=== PATIENT | male | born 1950 | race Caucasian/White ===

== ENCOUNTER 2019-01-31 16:16 | Inpatient (IN) | payer MEDICARE, OTHER ==
[~2019-01-31] VITALS: Ht 182.9 cm; Wt 99.4 kg
[~2019-01-31 16:16] MED LIST: HYDR-4383 PO; NAPR-1154 PO
[2019-01-31 16:59] LABS: BASOPHILS # (AUTO) 0.2 X10'3 (0-0.2); BASOPHILS % (AUTO) 1.4 % (0-1); EOSINOPHILS # (AUTO) 0.2 X10'3 (0-0.9); EOSINOPHILS % (AUTO) 1.4 % (0-6); HEMATOCRIT 47.3 % (42.0-52.0); HEMOGLOBIN 16.1 g/dl (14.0-17.9); LYMPHOCYTES # (AUTO) 1.6 X10'3 (1.1-4.8); LYMPHOCYTES % (AUTO) 14.1 % (21-51); MEAN CORPUSCULAR HEMOGLOBIN 29.6 PG (27.0-31.0); MEAN CORPUSCULAR HGB CONC 34.1 g/dL (33.0-36.5); MEAN CORPUSCULAR VOLUME 86.9 FL (78-98); MEAN PLATELET VOLUME 8.8 FL (7.4-10.4); MONOCYTES # (AUTO) 0.7 X10'3 (0-0.9); MONOCYTES % (AUTO) 6.1 % (2-12); NEUTROPHILS # (AUTO) 8.9 X10'3 (1.8-7.7); PLATELET COUNT 257 X10'3 (140-440); RED BLOOD COUNT 5.44 X10'6 (4.70-6.10); RED CELL DISTRIBUTION WIDTH 13.9 % (11.5-14.5); WHITE BLOOD COUNT 11.5 X10'3 (4.5-11.0)
[2019-01-31] MEDS ORDERED: nitroGLYCERIN 0.4mg/hour patch TD ONE (17:00)
[2019-01-31 17:10] LABS: ALANINE AMINOTRANSFERASE 72 U/L (12-78); ALBUMIN 3.8 G/DL (3.4-5.0); ALBUMIN/GLOBULIN RATIO 1.2 (1.1-1.5); ALKALINE PHOSPHATASE 116 IU/L (46-116); ANION GAP 9 (8-16); ASPARTATE AMINO TRANSFERASE 29 U/L (10-37); BILIRUBIN,TOTAL 0.2 MG/DL (0.1-1.0); BLOOD UREA NITROGEN 20 MG/DL (7-18); BUN/CREATININE RATIO 17.9 (5.4-32.0); CHLORIDE 102 MMOL/L (99-107); CREATININE 1.12 MG/DL (0.60-1.10); GLUCOSE 322 MG/DL (70-104); POTASSIUM 3.9 MMOL/L (3.5-5.1); SODIUM 136 MMOL/L (135-145); TOTAL CARBON DIOXIDE 25.5 MMOL/L (24-32); eGFR 66 ML/MIN
--- NOTE | 2019-01-31 17:15 | NUR ---
RELIEVING RN FOR BREAK, PT IS RESTING QUIETLY ON GURNEY, RESP EVEN AND UNLABORED, PT SMOKES 1 PPD, ASKING FOR NICOTINE PATCH, DR COOK AWARE AND GAVE VERBAL ORDER FOR NICOTINE PATCH 14MG X1 NOW
[2019-01-31] MEDS ORDERED: nicotine 14mg patch - 24hr TD ONE (17:20)
[2019-01-31 17:34] LABS: INR 0.9 INR; PARTIAL THROMBOPLASTIN TIME 26 SECONDS (22-32); PROTHROMBIN TIME 9.5 SECONDS (9.0-12.0)
--- NOTE | 2019-01-31 17:58 | NUR ---
TALKED TO DR URENA & SHE MAY NOT HAVE TIME FOR ANOTHER ADMIT TODAY SO WE WILL HAVE TO CONTACT THE NIGHT HOSPITALIST
[2019-01-31] MEDS ORDERED: ASPI-611 PO (18:09)
[2019-01-31] MEDS ORDERED: normal saline 1000ml 1,000 ML IV SCH (19:22)
[2019-01-31] MEDS ORDERED: magnesium hydroxide 30ml (MOM) UD suspension PO PRN (19:25)
[2019-01-31] MEDS ORDERED: magnesium 4gm in 100ml NS 100 ML IV PRN (19:25)
[2019-01-31] MEDS ORDERED: magnesium 2GM in 50ml NS 50 ML IV PRN (19:25)
[2019-01-31] MEDS ORDERED: acetaminophen 325mg tablet PO PRN (19:25)
[2019-01-31] MEDS ORDERED: potassium Cl 40MEQ/NS 500ml 500 ML IV PRN ×2 (19:25)
[2019-01-31] MEDS ORDERED: ondansetron/PF 4mg/2ml inj IV PRN (19:25)
[2019-01-31] MEDS ORDERED: mag hydrox/Alum hydrox/simeth 30ml oral suspension PO PRN (19:25)
[2019-01-31] MEDS ORDERED: potassium Cl 20 mEq SR tablet PO PRN ×2 (19:25)
--- NOTE | 2019-01-31 19:39 | NUR ---
PT FAIRLY ADAMANT ABOUT NOT STAYING IN HOSPITAL, WANTS TO SPEAK WITH HOSPITALIST.
--- NOTE | 2019-01-31 19:46 | NUR ---
DR HURT NOTIFIED OF PT'S DESIRE TO LEAVE.
[2019-01-31] MEDS: enoxaparin 100mg/ml syringe SQ SCH (20:00)
[2019-01-31] MEDS: nicotine 21mg patch - 24 hr TD SCH (20:50)
--- NOTE | 2019-01-31 23:31 | NUR ---
Received phone call from Dr. De Leon to stop drawing trops on the pt. Per Dr. De Leon "We know what's going on, so we don't need to keep drawing them." Will cancel future trop orders
[2019-02-01] VITALS (12 sets, daily range): BP systolic 118–172; BP diastolic 55–106
[2019-02-01] MEDS ORDERED: glucagon, human recombinant 1mg kit SUBCUT PRN
[2019-02-01] MEDS ORDERED: MESSAGE TO PHARMACY PO ONE
[2019-02-01] MEDS ORDERED: dextrose ORAL solution 15 GM/59 ML bottle PO PRN ×2
--- NOTE | 2019-02-01 00:07 | NUR ---
DR HURT CALLED BACK TO UNIT, STATES HE LEFT A MESSAGE FOR DR DAVILA REGARDING PT.
--- NOTE | 2019-02-01 00:29 | NUR ---
Patient in room . I have received report from Rosita and had the opportunity to ask questions and assume patient care.
--- NOTE | 2019-02-01 00:36 | NUR ---
DR DAVILA CALLED BACK PLAN AGGRESTAT PROTOCOL.
[2019-02-01] MEDS ORDERED: aspirin 325mg tablet, delayed-release (Ecotrin) PO PRN (00:40)
--- NOTE | 2019-02-01 04:00 | NUR ---
PAGER ID: [phone] MESSAGE: Lexx Vargas in [id number] admitted for NSTEMI who is scheduled for heart cath later this morning had Aggrastat ordered that was never started in ED or passed on in report. Would you still like me to start? Arlen Allred Addendum: 02/01/19 at 0515 by Arlen Wilson RN Dr. Chairez called and would still like this med started since Dr. De Leon ordered it. Med was started following protocol with 50ml bolus and rate of 18ml/hr.
--- NOTE | 2019-02-01 04:40 | NUR ---
Per television repairman pt is in 2nd degree type 1 HB
[2019-02-01] MEDS: tirofiban 5mg in NS 100mL 100 ML IV SCH ×5 (04:44→22:16)
[2019-02-01 06:35] LABS: BASOPHILS # (AUTO) 0.1 X10'3 (0-0.2); BASOPHILS % (AUTO) 0.9 % (0-1); EOSINOPHILS # (AUTO) 0.2 X10'3 (0-0.9); EOSINOPHILS % (AUTO) 2.1 % (0-6); HEMATOCRIT 43.9 % (42.0-52.0); HEMOGLOBIN 15.1 g/dl (14.0-17.9); LYMPHOCYTES # (AUTO) 1.9 X10'3 (1.1-4.8); LYMPHOCYTES % (AUTO) 18.1 % (21-51); MEAN CORPUSCULAR HEMOGLOBIN 29.9 PG (27.0-31.0); MEAN CORPUSCULAR HGB CONC 34.3 g/dL (33.0-36.5); MEAN CORPUSCULAR VOLUME 87.4 FL (78-98); MONOCYTES # (AUTO) 0.7 X10'3 (0-0.9); MONOCYTES % (AUTO) 7.2 % (2-12); NEUTROPHILS # (AUTO) 7.4 X10'3 (1.8-7.7); NEUTROPHILS % (AUTO) 71.7 % (42-75); PLATELET COUNT 243 X10'3 (140-440); RED BLOOD COUNT 5.03 X10'6 (4.70-6.10); RED CELL DISTRIBUTION WIDTH 13.6 % (11.5-14.5); WHITE BLOOD COUNT 10.3 X10'3 (4.5-11.0)
[2019-02-01 06:42] LABS: ALANINE AMINOTRANSFERASE 64 U/L (12-78); ALBUMIN 3.2 G/DL (3.4-5.0); ALBUMIN/GLOBULIN RATIO 1.1 (1.1-1.5); ALKALINE PHOSPHATASE 97 IU/L (46-116); ANION GAP 11 (8-16); ASPARTATE AMINO TRANSFERASE 67 U/L (10-37); BILIRUBIN,TOTAL 0.4 MG/DL (0.1-1.0); BLOOD UREA NITROGEN 16 MG/DL (7-18); BUN/CREATININE RATIO 16.5 (5.4-32.0); CALCIUM 8.7 MG/DL (8.5-10.1); CHLORIDE 105 MMOL/L (99-107); CREATININE 0.97 MG/DL (0.60-1.10); GLUCOSE 241 MG/DL (70-104); MAGNESIUM 1.7 MG/DL (1.5-2.4); POTASSIUM 3.7 MMOL/L (3.5-5.1); SODIUM 139 MMOL/L (135-145); TOTAL PROTEIN 6.2 G/DL (6.4-8.2); eGFR 77 ML/MIN
--- NOTE | 2019-02-01 06:43 | NUR ---
Problems reprioritized. Patient report given, questions answered & plan of care reviewed with Marine STEWART. NEW GRAD documentation: I have reviewed and agree with all interventions, assessments performed and documented by JESSIKA STEWART. NEW GRAD Medication Administration: For this medication-pass time frame, all medication were reviewed, dispensed, administered and documented per hospital policy by JESSIKA STEWART.
--- NOTE | 2019-02-01 06:48 | NUR ---
Patient in room PCU 3016. I have received report from Livia RN and had the opportunity to ask questions and assume patient care.
[2019-02-01 07:15] LABS: HEMOGLOBIN A1C 9.9 % (4.5-6.2)
[2019-02-01] MEDS: enoxaparin 100mg/ml syringe SQ SCH (08:00)
[2019-02-01] MEDS: K and/or MAG REPLACEMENT MC SCH (08:00)
[2019-02-01] MEDS: aspirin 81mg tab.chew PO SCH (08:18)
[2019-02-01] MEDS: nicotine 21mg patch - 24 hr TD SCH (08:19)
[2019-02-01] MEDS: insulin Lispro (HumaLOG) vial - multi-dose SQ SCH ×3 (08:22→21:11)
--- NOTE | 2019-02-01 11:43 | NUR ---
PAGER ID: [phone] MESSAGE: Donald [id number]. BP 152/97 rechecked and was 170/95. please adviseMarine [phone]
[2019-02-01] MEDS ORDERED: metoprolol tartrate 25mg tablet PO ONE ×2 (11:50→16:05)
[2019-02-01] MEDS ORDERED: midazolam 2 mg/2 ml injection ONE ×3 (14:00→14:47)
[2019-02-01] MEDS ORDERED: LIDOcaine 1% (10mg/ml)w/preservative injection 20ml MDV ONE (14:01)
[2019-02-01] MEDS ORDERED: fentaNYL/PF 50MCG/1 ML 2ML syringe ONE (14:01)
[2019-02-01] MEDS ORDERED: iohexol 350 MG/ML 50ML vial IV ONE (14:01)
[2019-02-01] MEDS ORDERED: iohexol 350MG/ML 100ml bottle IV ONE (14:01)
[2019-02-01] MEDS ORDERED: magnesium hydroxide 30ml (MOM) UD suspension PO PRN (15:35)
[2019-02-01] MEDS ORDERED: proCHLORperazine 10 MG/2 ml inj IV PRN (15:35)
[2019-02-01] MEDS ORDERED: acetaminophen 325mg tablet PO PRN (15:35)
[2019-02-01] MEDS ORDERED: HYDROcodone/acetaminophen 10/325mg tab PO PRN (15:35)
[2019-02-01] MEDS ORDERED: morphine 10mg/ml inj. IV PRN (15:35)
[2019-02-01] MEDS: normal saline 1000ml 1,000 ML IV SCH ×2 (15:35→22:17)
[2019-02-01] MEDS ORDERED: morphine 4 MG/ML inj SYRINge IV PRN (15:35)
[2019-02-01] MEDS ORDERED: heparin 10,000 units/1 ML INJ IV PRN (15:45)
--- NOTE | 2019-02-01 15:46 | NUR ---
Called report to Mellisa STEWART in the ICU
[2019-02-01] MEDS ORDERED: heparin 10,000 units/1 ML INJ IV ONE (16:00)
--- NOTE | 2019-02-01 16:00 | NUR ---
pt received by nolberto to room 2039. sbp by art line- 190's, by cuff 170's. dr barnhart notified- will give lopressor early along with a flexeril. in the mean time pt found oob over rail with sheath. back to bed. repeated instruction both b4 and after incident the precautionds and dangers of moving, bending, standing. pt with many repeated questions- answered many times.
[2019-02-01] MEDS: cyclobenzaprine 10mg tablet PO PRN (16:20)
[2019-02-01] MEDS: insulin regular, human 100 UNIT in normal saline 100ml IV soln 100 ML IV SCH ×2 (16:32)
[2019-02-01] MEDS ORDERED: insulin glargine (Lantus) pen - multi-dose SQ PRN (16:35)
[2019-02-01] MEDS ORDERED: dextrose 50%-water 50ml dispensing syringe IV PRN ×3 (16:35)
[2019-02-01] MEDS ORDERED: MESSAGE TO NURSING PO ONE ×4 (16:35)
[2019-02-01] MEDS ORDERED: amLODIPine 5mg tablet PO SCH (16:40)
[2019-02-01] MEDS: amLODIPine 5mg tablet PO SCH (16:56)
[2019-02-01] MEDS: heparin 25,000 UNIT/250ml bag 250 ML IV SCH ×2 (17:00→23:48)
[2019-02-01] MEDS ORDERED: vancomycin/NS 1 GM ADD-VANTAGE 250 ML IV SCH (17:00)
--- NOTE | 2019-02-01 17:00 | NUR ---
dr barnhart here- aware of pt standing- area soft- small drainage at cath site. pulses palpable paola. lungs clear, pos bowel sounds. dr lua here x 2, dr barnhart ordered norvasc and given. heparin gtt started.
--- NOTE | 2019-02-01 18:00 | NUR ---
sbp down to 130's. tray x 2, voided x 1
--- NOTE | 2019-02-01 18:30 | NUR ---
Patient in room ICU 2039. I have received report from Mellisa STEWART and had the opportunity to ask questions and assume patient care.
--- NOTE | 2019-02-01 19:30 | NUR ---
Patient non-compliant with keeping leg straight. Patient continues to bend leg and attempting to sit up in bed. Patient educated on affects of bending leg. Will continue to educate patient.
[2019-02-01] MEDS: docusate sod 100mg capsule PO SCH (20:00)
[2019-02-01] MEDS ORDERED: metoprolol tartrate 12.5mg (1/2 tablet) PO SCH (20:00)
[2019-02-01] MEDS ORDERED: metoprolol tartrate 25mg tablet PO SCH (20:00)
[2019-02-01] MEDS: OXAZEpam 15mg capsule PO PRN (21:07)
[2019-02-01] MEDS: mupirocin 2% nasal ointment 1gm UD NS SCH (21:08)
[2019-02-01] MEDS: insulin glargine (Lantus) pen - multi-dose SQ SCH (21:12)
--- NOTE | 2019-02-01 22:35 | NUR ---
Patient had three episodes where he went into 3rd degree block and padilla down into the 30's. Blood pressure stable at this time. Left message with Dr De Leon's answering service. Waiting for call back.
--- NOTE | 2019-02-01 23:16 | NUR ---
Patient had three beat run of Vtach. Awaiting return call from Dr Russ. Cunningham at bedside. Will continue to monitor closely.
[2019-02-02] VITALS (23 sets, daily range): BP systolic 113–154; BP diastolic 69–92
--- NOTE | 2019-02-02 01:15 | NUR ---
Dr De Leon called back. New orders received to D/C lopressor. Will continue to monitor.
[2019-02-02] MEDS: tirofiban 5mg in NS 100mL 100 ML IV SCH ×4 (04:07→22:08)
--- NOTE | 2019-02-02 06:30 | NUR ---
Patient in room ICU 2039. I have received report from SHRAVAN and had the opportunity to ask questions and assume patient care.
[2019-02-02 06:41] LABS: BASOPHILS # (AUTO) 0.1 X10'3 (0-0.2); BASOPHILS % (AUTO) 0.7 % (0-1); EOSINOPHILS # (AUTO) 0.2 X10'3 (0-0.9); EOSINOPHILS % (AUTO) 2.2 % (0-6); HEMATOCRIT 44.4 % (42.0-52.0); HEMOGLOBIN 15.2 g/dl (14.0-17.9); LYMPHOCYTES # (AUTO) 1.8 X10'3 (1.1-4.8); LYMPHOCYTES % (AUTO) 17.6 % (21-51); MEAN CORPUSCULAR HEMOGLOBIN 30.1 PG (27.0-31.0); MEAN CORPUSCULAR HGB CONC 34.2 g/dL (33.0-36.5); MEAN CORPUSCULAR VOLUME 87.9 FL (78-98); MONOCYTES # (AUTO) 0.7 X10'3 (0-0.9); MONOCYTES % (AUTO) 6.9 % (2-12); NEUTROPHILS # (AUTO) 7.5 X10'3 (1.8-7.7); NEUTROPHILS % (AUTO) 72.6 % (42-75); PLATELET COUNT 235 X10'3 (140-440); RED BLOOD COUNT 5.04 X10'6 (4.70-6.10); RED CELL DISTRIBUTION WIDTH 13.9 % (11.5-14.5); WHITE BLOOD COUNT 10.3 X10'3 (4.5-11.0)
[2019-02-02 07:03] LABS: ALANINE AMINOTRANSFERASE 62 U/L (12-78); ALBUMIN 3.2 G/DL (3.4-5.0); ALKALINE PHOSPHATASE 100 IU/L (46-116); ANION GAP 11 (8-16); ASPARTATE AMINO TRANSFERASE 62 U/L (10-37); BILIRUBIN,TOTAL 0.4 MG/DL (0.1-1.0); BLOOD UREA NITROGEN 12 MG/DL (7-18); BUN/CREATININE RATIO 13.3 (5.4-32.0); CALCIUM 8.8 MG/DL (8.5-10.1); CHLORIDE 107 MMOL/L (99-107); CHOLESTEROL 190 MG/DL (0-200); GLUCOSE 191 MG/DL (70-104); HDL CHOLESTEROL 27 MG/DL (35-60); LDL CHOLESTEROL 142 MG/DL (50-100); MAGNESIUM 1.8 MG/DL (1.5-2.4); PHOSPHORUS 2.9 MG/DL (2.3-4.5); POTASSIUM 3.7 MMOL/L (3.5-5.1); SODIUM 139 MMOL/L (135-145); TOTAL CARBON DIOXIDE 21.1 MMOL/L (24-32); TOTAL PROTEIN 6.3 G/DL (6.4-8.2); TRIGLYCERIDES 111 MG/DL (20-135); eGFR 84 ML/MIN
[2019-02-02 07:09] LABS: PROTHROMBIN TIME 9.9 SECONDS (9.0-12.0)
[2019-02-02] MEDS: K and/or MAG REPLACEMENT MC SCH (08:00)
[2019-02-02] MEDS: docusate sod 100mg capsule PO SCH ×2 (08:00→20:00)
[2019-02-02] MEDS: mupirocin 2% nasal ointment 1gm UD NS SCH ×2 (08:00→20:14)
[2019-02-02] MEDS: amLODIPine 5mg tablet PO SCH ×2 (08:09→20:06)
[2019-02-02] MEDS: aspirin 81mg tab.chew PO SCH (08:09)
[2019-02-02] MEDS: atorvastatin 20mg tablet PO SCH (08:09)
[2019-02-02] MEDS: nicotine 21mg patch - 24 hr TD SCH (08:10)
[2019-02-02] MEDS: cyclobenzaprine 10mg tablet PO PRN ×2 (08:10→20:06)
[2019-02-02 09:06] LABS: TROPONIN I 8.25 NG/ML (0.0-0.05)
[2019-02-02] MEDS: insulin Lispro (HumaLOG) vial - multi-dose SQ SCH ×2 (09:12→19:36)
[2019-02-02] MEDS ORDERED: MESSAGE TO NURSING PO ONE ×4 (10:00→13:20)
--- NOTE | 2019-02-02 10:45 | NUR ---
episode of 2nd degree type 2 block when pt was sleeping. otherwise 1st degree sbp stable at 130" appetite good. continued . blood sugar down to 174. pages to vascular, here and doing procredure
--- NOTE | 2019-02-02 12:47 | NUR ---
DM consult: Pt admit w/ NSTEMI s/p cardiac cath hx smoking past 40 years now quitting on nicotine patch per MD note. Pt is newly DX T2DM w/ A1C 9.9 and no prior hx. Pt seen by RD for written/verbal DM ed w/ RD contact information provided. RD encouraged attending CDE course. Pt was very attentive even though he could not read handout at this time since w/o reading glasses. Pt mainly focused on reviewing portion sizing and optimal meal building/frequency. RD educated pt on healthy cooking options to reduce saturated fats and increase fiber intake as well given LDL [address] also reviewed signs/symptoms of low/high GLU w/ proper diet strategies; including how to maintain optimal GLU during exercise. Pt states just bought treadmill and uses it 2hr/week in addition to cutting down his portion sizes to lose wt. RD reviewed carb portions and nutrition facts labeling as well as sick day guidelines. Pt PO 75% avg meals meeting needs. RD d/w RN and dietary to add carb controlled diet given new DX. Per RN pt to have CABG in AM tomorrow; will need high protein reinforcement following. LBM [address] encouraged pt to contact if any further concerns. Will continue to monitor. Rec: 1. advance to carb controlled/heart healthy diet 2. monitor for ONS once s/p CABG 3. high protein ed once stable s/p CABG 4. bowel regularity 5. wt per rx Addendum: 02/02/19 at [address] Amended: Links added.
[2019-02-02] MEDS ORDERED: insulin regular, human 100 UNIT in normal saline 100ml IV soln 100 ML IV SCH ×2 (13:18)
[2019-02-02] MEDS ORDERED: insulin glargine (Lantus) pen - multi-dose SQ PRN (13:20)
[2019-02-02] MEDS ORDERED: NUT.TX.IMPAIRED DIGEST FXN (Ensure Clear) 237 ML PO ONE (13:20)
[2019-02-02] MEDS ORDERED: dextrose 50%-water 50ml dispensing syringe IV PRN (13:20)
--- NOTE | 2019-02-02 13:38 | NUR ---
Ensure clear ordered per MD; RD and dietary aware. Okay given pt will need increased protein needs tomorrow following CABG. Addendum: 02/02/19 at [address] Amended: Links added.
[2019-02-02] MEDS ORDERED: ringers solution, lacted 1,000 ML IV ONE (14:49)
[2019-02-02 15:34] LABS: CLARITY,URINE CLEAR (Clear); COLOR,URINE STRAW (Yellow); GLUCOSE, URINE 100 mg/dl (Neg); KETONES,URINE NEGATIVE (Neg); LEUKOCYTE ESTERASE ,URINE NEGATIVE (Neg); NITRITES, URINE NEGATIVE (Neg); OCCULT BLOOD,URINE NEGATIVE (Neg); PROTEIN,URINE NEGATIVE (Neg); UROBILINOGEN,URINE 0.2 E.U/dL (0.2-1.0)
[2019-02-02 15:37] LABS: UA COLLECTION TYPE VOIDED
[2019-02-02] MEDS: HYDROcodone/acetaminophen 10/325mg tab PO PRN ×2 (15:46→20:07)
[2019-02-02 16:46] LABS: ABG BASE EXCESS -0.3 mmol/L (-2.0-3.0); ABG HCO3 23.2 mmol/L (22.0-26.0); ABG OXYGEN SATURATION 90.5 % (95-98); ABG PCO2 (T) 34.9 mmHg (35.0-48.0); ABG PO2 (T) 54.9 mmHg (83-108); ALLEN'S TEST Positive; FCOHb 0.4 % (0.5-1.5); FMetHb 0.2 % (0.3-1.12); TOTAL HEMOGLOBIN 15.3 G/dl (14.0-18.0)
[2019-02-02 17:38] LABS: BASOPHILS # (AUTO) 0.1 X10'3 (0-0.2); EOSINOPHILS # (AUTO) 0.3 X10'3 (0-0.9)
[2019-02-02 17:40] LABS: BASOPHILS % (AUTO) 1.3 % (0-1); EOSINOPHILS % (AUTO) 2.4 % (0-6); HEMATOCRIT 43.7 % (42.0-52.0); HEMOGLOBIN 14.8 g/dl (14.0-17.9); LYMPHOCYTES # (AUTO) 2.6 X10'3 (1.1-4.8); LYMPHOCYTES % (AUTO) 24.6 % (21-51); MEAN CORPUSCULAR HEMOGLOBIN 29.8 PG (27.0-31.0); MEAN CORPUSCULAR HGB CONC 33.9 g/dL (33.0-36.5); MEAN CORPUSCULAR VOLUME 87.9 FL (78-98); MEAN PLATELET VOLUME 8.9 FL (7.4-10.4); MONOCYTES # (AUTO) 0.8 X10'3 (0-0.9); MONOCYTES % (AUTO) 7.4 % (2-12); NEUTROPHILS # (AUTO) 6.7 X10'3 (1.8-7.7); NEUTROPHILS % (AUTO) 64.3 % (42-75); PLATELET COUNT 220 X10'3 (140-440); RED BLOOD COUNT 4.98 X10'6 (4.70-6.10); RED CELL DISTRIBUTION WIDTH 13.7 % (11.5-14.5); WHITE BLOOD COUNT 10.4 X10'3 (4.5-11.0)
[2019-02-02 17:48] LABS: ANION GAP 12 (8-16); BLOOD UREA NITROGEN 12 MG/DL (7-18); BUN/CREATININE RATIO 13.5 (5.4-32.0); CALCIUM 8.7 MG/DL (8.5-10.1); CHLORIDE 107 MMOL/L (99-107); CREATININE 0.89 MG/DL (0.60-1.10); GLUCOSE 145 MG/DL (70-104); POTASSIUM 3.4 MMOL/L (3.5-5.1); SODIUM 140 MMOL/L (135-145); TOTAL CARBON DIOXIDE 21.4 MMOL/L (24-32); eGFR 86 ML/MIN
--- NOTE | 2019-02-02 17:54 | NUR ---
consents signed for or and blood. shekhar davison and yovani in. education given re cabg- materials given re pre- post and sternal prec. pt 'nervous' labs drawn, vacular and pft done. sheath still doent drawn- waveform similar to cuff pressures.
[2019-02-02] MEDS: normal saline 1000ml 1,000 ML IV SCH (18:15)
--- NOTE | 2019-02-02 18:30 | NUR ---
Patient in room ICU 2039. I have received report from Mellisa STEWART and had the opportunity to ask questions and assume patient care.
[2019-02-02 18:53] LABS: TROPONIN I 5.55 NG/ML (0.0-0.05)
[2019-02-02] MEDS: insulin glargine (Lantus) pen - multi-dose SQ SCH (21:00)
[2019-02-03] VITALS (23 sets, daily range): BP systolic 107–152; BP diastolic 56–99
[2019-02-03] MEDS: heparin 25,000 UNIT/250ml bag 250 ML IV SCH (01:14)
[2019-02-03] MEDS: insulin regular, human 100 UNIT in normal saline 100ml IV soln 100 ML IV SCH ×2 (01:52)
[2019-02-03] MEDS: tirofiban 5mg in NS 100mL 100 ML IV SCH (03:49)
[2019-02-03] MEDS ORDERED: gabapentin 400mg capsule PO ONE (05:30)
[2019-02-03] MEDS ORDERED: vancomycin/NS 1 GM ADD-VANTAGE 250 ML IV ONE (05:30)
[2019-02-03] MEDS ORDERED: cefazolin/dext.iso 2gm/50ml 50 ML IV ONE (05:30)
[2019-02-03 05:42] LABS: BASOPHILS # (AUTO) 0.1 X10'3 (0-0.2); EOSINOPHILS # (AUTO) 0.3 X10'3 (0-0.9); LYMPHOCYTES # (AUTO) 2.2 X10'3 (1.1-4.8); MEAN CORPUSCULAR VOLUME 88.2 FL (78-98); MONOCYTES # (AUTO) 0.8 X10'3 (0-0.9); MONOCYTES % (AUTO) 7.2 % (2-12)
[2019-02-03 05:44] LABS: BASOPHILS % (AUTO) 1.1 % (0-1); EOSINOPHILS % (AUTO) 2.7 % (0-6); HEMATOCRIT 46.8 % (42.0-52.0); LYMPHOCYTES % (AUTO) 20.6 % (21-51); MEAN CORPUSCULAR HEMOGLOBIN 30.2 PG (27.0-31.0); MEAN CORPUSCULAR HGB CONC 34.3 g/dL (33.0-36.5); MEAN PLATELET VOLUME 8.6 FL (7.4-10.4); NEUTROPHILS # (AUTO) 7.2 X10'3 (1.8-7.7); NEUTROPHILS % (AUTO) 68.4 % (42-75); PLATELET COUNT 239 X10'3 (140-440); RED CELL DISTRIBUTION WIDTH 14.3 % (11.5-14.5); WHITE BLOOD COUNT 10.6 X10'3 (4.5-11.0)
[2019-02-03] MEDS ORDERED: LORazepam 2 mg/ml vial IV ONE (06:00)
[2019-02-03] MEDS ORDERED: NUT.TX.IMPAIRED DIGEST FXN (Ensure Clear) 237 ML PO ONE (06:00)
[2019-02-03] MEDS ORDERED: famotidine 20mg tablet PO ONE (06:00)
[2019-02-03 06:10] LABS: ALANINE AMINOTRANSFERASE 62 U/L (12-78); ALBUMIN 3.2 G/DL (3.4-5.0); ALBUMIN/GLOBULIN RATIO 0.9 (1.1-1.5); ALKALINE PHOSPHATASE 104 IU/L (46-116); ANION GAP 11 (8-16); ASPARTATE AMINO TRANSFERASE 42 U/L (10-37); BILIRUBIN,TOTAL 0.3 MG/DL (0.1-1.0); BLOOD UREA NITROGEN 12 MG/DL (7-18); CALCIUM 8.6 MG/DL (8.5-10.1); CHLORIDE 104 MMOL/L (99-107); GLUCOSE 180 MG/DL (70-104); MAGNESIUM 1.7 MG/DL (1.5-2.4); POTASSIUM 4.1 MMOL/L (3.5-5.1); SODIUM 138 MMOL/L (135-145); TOTAL CARBON DIOXIDE 23.2 MMOL/L (24-32); TOTAL PROTEIN 6.6 G/DL (6.4-8.2); eGFR 75 ML/MIN
--- NOTE | 2019-02-03 06:30 | NUR ---
Patient in room ICU 2039. I have received report from PAT Delgado and had the opportunity to ask questions and assume patient care.
[2019-02-03] MEDS ORDERED: aminocaproic acid 250 MG/1 ML inj. ONE ×2 (07:17→09:00)
[2019-02-03] MEDS ORDERED: nitroGLYCERIN in D5W 50mg/250ml (Tridil) infusion IV ONE (07:17)
[2019-02-03] MEDS ORDERED: INSULIN R 100 UNIT in NS 100ML (1 UNIT/1 ML) BAG IV ONE (07:17)
[2019-02-03] MEDS ORDERED: rocuronium 10mg/ml inj IV ONE ×2 (07:17→07:25)
[2019-02-03] MEDS ORDERED: isoflurane 100ml inhalation liquid IH ONE (07:17)
[2019-02-03] MEDS ORDERED: protamine sulf. 10mg/ml inj. IV ONE (07:17)
--- NOTE | 2019-02-03 07:20 | NUR ---
Pt off unit to CVOR.
[2019-02-03] MEDS ORDERED: SUFENTANIL CITRATE 50 MCG/ML 2ml ampule IV ONE (07:23)
[2019-02-03] MEDS ORDERED: propofol inj 20 ML IV ONE (07:24)
[2019-02-03] MEDS ORDERED: LIDOcaine 2% (20mg/ml) 5ml vial ONE (07:24)
[2019-02-03] MEDS ORDERED: pancuronium br 1mg/ml inj IV ONE (07:25)
[2019-02-03] MEDS ORDERED: LORazepam 2 mg/ml vial ONE (07:27)
[2019-02-03] MEDS: normal saline 1000ml 1,000 ML IV SCH ×2 (07:35→19:41)
[2019-02-03 07:58] LABS: TOTAL CELLS COUNTED 100
[2019-02-03 07:59] LABS: PLATELET ESTIMATE NORMAL
[2019-02-03] MEDS: docusate sod 100mg capsule PO SCH ×2 (08:00→19:40)
[2019-02-03] MEDS: mupirocin 2% nasal ointment 1gm UD NS SCH ×2 (08:00→19:41)
[2019-02-03] MEDS: amLODIPine 5mg tablet PO SCH (08:00)
[2019-02-03] MEDS: K and/or MAG REPLACEMENT MC SCH (08:00)
[2019-02-03] MEDS: atorvastatin 20mg tablet PO SCH (08:00)
[2019-02-03] MEDS ORDERED: ROPIVAcaine 0.5% (5mg/ml) 30ml vial ONE (08:12)
[2019-02-03] MEDS ORDERED: ceFAZolin 1000mg inj ONE (08:12)
[2019-02-03] MEDS ORDERED: LIDOcaine 1% 30ml preserv. free vial ONE (08:13)
[2019-02-03] MEDS ORDERED: heparin 10,000 units/1 ML INJ ONE ×2 (08:13→09:00)
[2019-02-03 08:21] LABS: ABG OXYGEN SATURATION 99.2 % (95-98); ABG PH 7.316 (7.350-7.450); ABG PO2 202.2 mmHg (60.0-100.0); CL (ABG) 104 mmol/L (99-107); FCOHb 0.9 % (0.5-1.5); FMetHb 0.3 % (0.3-1.12); GLUCOSE (ABG) 291 mg/dl (70-105); IONIZED CA (ABG) 1.18 mmol/L (1.03-1.32); K (ABG) 3.8 mmol/L (3.3-5.1); NA (ABG) 127 mmol/L (135-145); TOTAL HEMOGLOBIN 14.4 G/dl (14.0-18.0)
[2019-02-03] MEDS: aspirin 81mg tab.chew PO SCH (08:30)
[2019-02-03] MEDS ORDERED: esmolol inj. 10 ML IV ONE (08:49)
[2019-02-03] MEDS ORDERED: metoprolol tartrate 1mg/ml inj IV ONE (08:49)
[2019-02-03] MEDS ORDERED: papaverine 30 mg/ml 2ml inj. IA ONE (08:50)
[2019-02-03] MEDS ORDERED: heparin 10,000 units/1 ML INJ IR ONE (08:50)
[2019-02-03] MEDS ORDERED: ipratropium/albuterol 3ml nebule IH PRN (08:55)
[2019-02-03] MEDS ORDERED: phenylephrine 10mg/ml inj. ONE (09:00)
[2019-02-03] MEDS ORDERED: albumin (human) 25% 100 ML IV solution IV ONE (09:00)
[2019-02-03] MEDS ORDERED: sodium bicarbonate (8.4%) inj. 1 MEQ/ML ML ONE (09:00)
[2019-02-03] MEDS ORDERED: LIDOcaine 2% (20 mg/ml) 5ml cardiac syringe ONE (09:00)
[2019-02-03] MEDS ORDERED: papaverine 30 mg/ml 2ml inj. ONE (09:00)
[2019-02-03] MEDS ORDERED: calcium chloride 100 MG/1 ML inj IV ONE (09:00)
[2019-02-03 09:06] LABS: ABG BASE EXCESS VENOUS -5.3 mmol/L; ABG HCO3 VENOUS 21.9 mmol/L; ABG PCO2 VENOUS 49.3 mmHg; ABG PO2 VENOUS 103.5 mmHg; CL (ABG) 105 mmol/L (99-107); FCOHb VENOUS 0.8 %; FHHb VENOUS 2.6 %; FMetHb VENOUS 0.5 %; FO2Hb VENOUS 96.1 %; GLUCOSE (ABG) 214 mg/dl (70-105); IONIZED CA (ABG) 1.17 mmol/L (1.03-1.32); K (ABG) 3.7 mmol/L (3.3-5.1); NA (ABG) 127 mmol/L (135-145); TOTAL HEMOGLOBIN 13.6 G/dl (14.0-18.0)
[2019-02-03 09:30] LABS: ABG BASE EXCESS -4.2 mmol/L (-2.0-3.0); ABG OXYGEN SATURATION 98.9 % (95-98); ABG PCO2 45.1 mmHg (35.0-45.0); ABG PH 7.306 (7.350-7.450); ABG PO2 297.6 mmHg (60.0-100.0); CL (ABG) 101 mmol/L (99-107); FCOHb 0.3 % (0.5-1.5); FMetHb 0.6 % (0.3-1.12); GLUCOSE (ABG) 158 mg/dl (70-105); K (ABG) 3.4 mmol/L (3.3-5.1); NA (ABG) 128 mmol/L (135-145); TOTAL HEMOGLOBIN 9.9 G/dl (14.0-18.0)
[2019-02-03 09:51] LABS: ABG BASE EXCESS -5.3 mmol/L (-2.0-3.0); ABG HCO3 20.3 mmol/L (22.0-26.0); ABG OXYGEN SATURATION 99.2 % (95-98); ABG PCO2 39.7 mmHg (35.0-45.0); ABG PH 7.326 (7.350-7.450); ABG PO2 318.3 mmHg (60.0-100.0); CL (ABG) 103 mmol/L (99-107); FCOHb 0.2 % (0.5-1.5); FMetHb 0.5 % (0.3-1.12); FO2Hb 98.5 % (94-100); GLUCOSE (ABG) 150 mg/dl (70-105); IONIZED CA (ABG) 1.07 mmol/L (1.03-1.32); K (ABG) 3.8 mmol/L (3.3-5.1); NA (ABG) 128 mmol/L (135-145); TOTAL HEMOGLOBIN 10.5 G/dl (14.0-18.0)
[2019-02-03] MEDS ORDERED: MESSAGE TO NURSING PO ONE (10:00)
[2019-02-03 10:30] LABS: ABG BASE EXCESS -1.8 mmol/L (-2.0-3.0); ABG HCO3 24.2 mmol/L (22.0-26.0); ABG OXYGEN SATURATION 99.1 % (95-98); ABG PCO2 46.8 mmHg (35.0-45.0); ABG PH 7.332 (7.350-7.450); ABG PO2 303.1 mmHg (60.0-100.0); CL (ABG) 105 mmol/L (99-107); FCOHb 0.2 % (0.5-1.5); FMetHb 0.4 % (0.3-1.12); FO2Hb 98.5 % (94-100); GLUCOSE (ABG) 138 mg/dl (70-105); IONIZED CA (ABG) 1.06 mmol/L (1.03-1.32); K (ABG) 3.8 mmol/L (3.3-5.1); NA (ABG) 129 mmol/L (135-145); TOTAL HEMOGLOBIN 10.6 G/dl (14.0-18.0)
[2019-02-03] MEDS ORDERED: albumin (Human) 5% 250ml 250 ML IV ONE (10:54)
[2019-02-03 11:11] LABS: ABG BASE EXCESS VENOUS -2.1 mmol/L; ABG HCO3 VENOUS 23.4 mmol/L; ABG PCO2 VENOUS 42.9 mmHg; ABG PO2 VENOUS 56.7 mmHg; CL (ABG) 108 mmol/L (99-107); FCOHb VENOUS 0.4 %; FHHb VENOUS 11.4 %; FMetHb VENOUS 0.6 %; FO2Hb VENOUS 87.6 %; GLUCOSE (ABG) 134 mg/dl (70-105); IONIZED CA (ABG) 1.14 mmol/L (1.03-1.32); K (ABG) 3.8 mmol/L (3.3-5.1); NA (ABG) 129 mmol/L (135-145)
[2019-02-03] MEDS ORDERED: niCARDipine-NS 40mg/200ml IVPB 200 ML IV PRN (11:23)
[2019-02-03] MEDS ORDERED: nitroGLYCERIN-Tridil 50MG/D5W 250 ML IV SCH (11:23)
[2019-02-03] MEDS ORDERED: nitroGLYCERIN-Tridil 50MG/D5W 250 ML IV PRN (11:23)
[2019-02-03] MEDS ORDERED: potassium Cl 20 mEq SR tablet PO PRN (11:25)
[2019-02-03] MEDS ORDERED: morphine 4 MG/ML inj SYRINge IV PRN ×2 (11:25)
[2019-02-03] MEDS ORDERED: insulin regular, human inj. 100 UNITS in normal saline 100ml IV soln 100 ML IV SCH ×2 (11:25)
[2019-02-03] MEDS ORDERED: magnesium 2GM in 50ml NS 50 ML IV PRN (11:25)
[2019-02-03] MEDS ORDERED: ondansetron/PF 4mg/2ml inj IV PRN (11:25)
[2019-02-03] MEDS ORDERED: dextrose 50%-water 50ml dispensing syringe IV PRN (11:25)
[2019-02-03] MEDS ORDERED: sodium phosphate inj. 30 MMOL in dextrose 5%-water 250 ML IV PRN (11:25)
[2019-02-03] MEDS ORDERED: acetaminophen 325mg tablet PO PRN (11:25)
[2019-02-03] MEDS ORDERED: sodium phosphate inj. 15 MMOL in dextrose 5%-water 150 ML IV PRN (11:25)
[2019-02-03] MEDS ORDERED: magnesium hydroxide 30ml (MOM) UD suspension PO PRN (11:25)
[2019-02-03] MEDS ORDERED: pantoprazole 40 MG vial IV ONE (11:25)
[2019-02-03] MEDS ORDERED: metoclopramide 5 mg/ml inj IV PRN (11:25)
[2019-02-03] MEDS ORDERED: Neutra Phos packet PO PRN (11:25)
[2019-02-03] MEDS ORDERED: magnesium 4gm in 100ml NS 100 ML IV PRN (11:25)
--- NOTE | 2019-02-03 12:00 | NUR ---
Received to room 2039, accompanied by Agustin Brown and surgical crew. Placed on ventilator, to electronic device monitor, arterial line and PA line pressure monitored. Chest tubes to suction at 20 cm. Montemayor cath to gravity drainage. Dressings are dry and intact. See assessment record. All vasoactive drugs are infusing via central line.
[2019-02-03 12:05] LABS: ABG BASE EXCESS -13.5 mmol/L (-2.0-3.0); ABG HCO3 11.1 mmol/L (22.0-26.0); ABG OXYGEN SATURATION 95.3 % (95-98); ABG PCO2 (T) 21.5 mmHg (35.0-48.0); ABG PH (T) 7.331 (7.350-7.450); ABG PO2 (T) 89.1 mmHg (83-108); FCOHb 0.2 % (0.5-1.5); FMetHb 0.6 % (0.3-1.12); FO2Hb 94.5 % (94-100); MINUTE VOLUME 10 L/min; PATIENT TEMPERATURE 37.4; PEEP 5 cm H2O; RESPIRATORY RATE 14 b/min; RESPIRATORY RATE (OBSERVED) 14 b/min; TIDAL VOLUME 650 mL; TOTAL HEMOGLOBIN 6.2 G/dl (14.0-18.0)
[2019-02-03 12:08] LABS: BASOPHILS % (AUTO) 0.2 % (0-1); EOSINOPHILS # (AUTO) 0.1 X10'3 (0-0.9); EOSINOPHILS % (AUTO) 0.8 % (0-6); HEMATOCRIT 33.1 % (42.0-52.0); HEMOGLOBIN 11.3 g/dl (14.0-17.9); LYMPHOCYTES # (AUTO) 0.8 X10'3 (1.1-4.8); LYMPHOCYTES % (AUTO) 5.3 % (21-51); MEAN CORPUSCULAR HEMOGLOBIN 30.1 PG (27.0-31.0); MEAN CORPUSCULAR HGB CONC 34.2 g/dL (33.0-36.5); MEAN CORPUSCULAR VOLUME 88.2 FL (78-98); MEAN PLATELET VOLUME 8.3 FL (7.4-10.4); MONOCYTES # (AUTO) 0.7 X10'3 (0-0.9); NEUTROPHILS # (AUTO) 13.1 X10'3 (1.8-7.7); NEUTROPHILS % (AUTO) 88.7 % (42-75); PLATELET COUNT 156 X10'3 (140-440); RED BLOOD COUNT 3.75 X10'6 (4.70-6.10); RED CELL DISTRIBUTION WIDTH 13.7 % (11.5-14.5); WHITE BLOOD COUNT 14.8 X10'3 (4.5-11.0)
[2019-02-03 12:18] LABS: INR 1.1 INR; PARTIAL THROMBOPLASTIN TIME 26 SECONDS (22-32); PROTHROMBIN TIME 10.7 SECONDS (9.0-12.0)
[2019-02-03 12:22] LABS: ALANINE AMINOTRANSFERASE 36 U/L (12-78); ALBUMIN 2.7 G/DL (3.4-5.0); ALBUMIN/GLOBULIN RATIO 1.2 (1.1-1.5); ALKALINE PHOSPHATASE 62 IU/L (46-116); ANION GAP 8 (8-16); ASPARTATE AMINO TRANSFERASE 38 U/L (10-37); BILIRUBIN,TOTAL 0.4 MG/DL (0.1-1.0); BLOOD UREA NITROGEN 10 MG/DL (7-18); BUN/CREATININE RATIO 10.8 (5.4-32.0); CALCIUM 7.9 MG/DL (8.5-10.1); CHLORIDE 109 MMOL/L (99-107); CREATININE 0.93 MG/DL (0.60-1.10); GLUCOSE 123 MG/DL (70-104); POTASSIUM 3.7 MMOL/L (3.5-5.1); SODIUM 142 MMOL/L (135-145); TOTAL CARBON DIOXIDE 24.9 MMOL/L (24-32); TOTAL PROTEIN 4.9 G/DL (6.4-8.2); eGFR 81 ML/MIN
[2019-02-03 12:26] LABS: ABG BASE EXCESS -2.9 mmol/L (-2.0-3.0); ABG HCO3 22.6 mmol/L (22.0-26.0); ABG OXYGEN SATURATION 93.6 % (95-98); ABG PCO2 (T) 42.6 mmHg (35.0-48.0); ABG PH (T) 7.343 (7.350-7.450); FCOHb 0.3 % (0.5-1.5); FMetHb 0.2 % (0.3-1.12); FO2Hb 93.1 % (94-100); MINUTE VOLUME 9 L/min; PATIENT TEMPERATURE 37.4; PEEP 5 cm H2O; RESPIRATORY RATE 14 b/min; RESPIRATORY RATE (OBSERVED) 14 b/min; TIDAL VOLUME 650 mL; TOTAL HEMOGLOBIN 12.3 G/dl (14.0-18.0)
[2019-02-03 12:27] LABS: MAGNESIUM 1.7 MG/DL (1.5-2.4)
[2019-02-03 12:29] LABS: PHOSPHORUS 1.1 MG/DL (2.3-4.5)
[2019-02-03] MEDS: potassium Cl 20mEq/100mL bag 100 ML IV PRN ×6 (12:41→20:59)
[2019-02-03] MEDS: gabapentin 300mg capsule PO SCH ×2 (13:00→20:59)
[2019-02-03] MEDS: insulin Lispro (HumaLOG) vial - multi-dose SQ SCH ×2 (13:00→18:00)
[2019-02-03] MEDS: sodium chloride 0.45% 1,000 ML IV SCH (13:05)
[2019-02-03] MEDS: albumin (Human) 5% 250ml 250 ML IV PRN ×2 (13:40→14:38)
--- NOTE | 2019-02-03 14:25 | NUR ---
Right femoral sheath discontinued. Pt became mildly hypotensive SBP 96/57. Tridil temporally held, 5% albumin administered. Pt responded to volume.
[2019-02-03] MEDS ORDERED: cefazolin/dext.iso 2gm/50ml 50 ML IV SCH (16:00)
[2019-02-03] MEDS: nicotine 21mg patch - 24 hr TD SCH (16:20)
[2019-02-03 16:29] LABS: CLARITY,URINE CLEAR (Clear); COLOR,URINE YELLOW (Yellow); GLUCOSE, URINE 100 mg/dl (Neg); KETONES,URINE NEGATIVE (Neg); LEUKOCYTE ESTERASE ,URINE NEGATIVE (Neg); NITRITES, URINE NEGATIVE (Neg); OCCULT BLOOD,URINE TRACE-INTACT (Neg); PH,URINE 5.5 (4.8-8.0); PROTEIN,URINE TRACE mg/dl (Neg); UROBILINOGEN,URINE 0.2 E.U/dL (0.2-1.0)
[2019-02-03 16:33] LABS: UA COLLECTION TYPE FOLEY CATH
[2019-02-03 16:34] LABS: BACTERIA,URINE NONE SEEN /HPF (Neg); MUCUS STRANDS NONE SEEN /LPF (Neg); RBC,URINE 0-2 /HPF (0-2); SQUAMOUS EPITHELIAL CELL,UR NONE SEEN /LPF (FEW); WBC,URINE NONE SEEN /HPF (0-4)
[2019-02-03] MEDS: ceFAZolin 2gm in dextrose, iso 100 ML IV SCH ×2 (17:27→23:31)
[2019-02-03 17:33] LABS: BASOPHILS % (AUTO) 0.2 % (0-1); EOSINOPHILS % (AUTO) 0.1 % (0-6); HEMOGLOBIN 10.5 g/dl (14.0-17.9); LYMPHOCYTES # (AUTO) 0.5 X10'3 (1.1-4.8); LYMPHOCYTES % (AUTO) 3.6 % (21-51); MEAN CORPUSCULAR HEMOGLOBIN 29.9 PG (27.0-31.0); MEAN CORPUSCULAR HGB CONC 33.8 g/dL (33.0-36.5); MEAN CORPUSCULAR VOLUME 88.5 FL (78-98); MEAN PLATELET VOLUME 8.7 FL (7.4-10.4); MONOCYTES # (AUTO) 0.3 X10'3 (0-0.9); MONOCYTES % (AUTO) 2.6 % (2-12); NEUTROPHILS # (AUTO) 12.3 X10'3 (1.8-7.7); NEUTROPHILS % (AUTO) 93.5 % (42-75); PLATELET COUNT 171 X10'3 (140-440); RED CELL DISTRIBUTION WIDTH 13.5 % (11.5-14.5); WHITE BLOOD COUNT 13.2 X10'3 (4.5-11.0)
[2019-02-03 17:45] LABS: ANION GAP 9 (8-16); BLOOD UREA NITROGEN 10 MG/DL (7-18); BUN/CREATININE RATIO 11.1 (5.4-32.0); CALCIUM 8.2 MG/DL (8.5-10.1); CHLORIDE 109 MMOL/L (99-107); GLUCOSE 170 MG/DL (70-104); MAGNESIUM 3.1 MG/DL (1.5-2.4); PHOSPHORUS 1.8 MG/DL (2.3-4.5); POTASSIUM 3.8 MMOL/L (3.5-5.1); SODIUM 139 MMOL/L (135-145); TOTAL CARBON DIOXIDE 21.2 MMOL/L (24-32); eGFR 84 ML/MIN
--- NOTE | 2019-02-03 18:17 | NUR ---
Problems reprioritized. Patient report given, questions answered & plan of care reviewed with PAT Garcia.
--- NOTE | 2019-02-03 18:17 | NUR ---
Patient in room ICU 2039. I have received report from Reagan STEWART and had the opportunity to ask questions and assume patient care.
[2019-02-03] MEDS: vancomycin/NS 1 GM ADD-VANTAGE 250 ML IV SCH (19:41)
--- NOTE | 2019-02-03 22:30 | NUR ---
Dr Sheets at bedside, Updated. Pt still too sleepy to extubate. ABG done as requested, no vent changes, pt remains on Spont ar 55% FiO2.
[2019-02-03 22:35] LABS: ABG BASE EXCESS -5.5 mmol/L (-2.0-3.0); ABG HCO3 18.7 mmol/L (22.0-26.0); ABG OXYGEN SATURATION 90.3 % (95-98); ABG PCO2 (T) 33.7 mmHg (35.0-48.0); ABG PH (T) 7.366 (7.350-7.450); ABG PO2 (T) 62.2 mmHg (83-108); FCOHb 0.3 % (0.5-1.5); FMetHb 0.1 % (0.3-1.12); FO2Hb 89.9 % (94-100); PATIENT TEMPERATURE 37.9; PEEP 5 cm H2O; RESPIRATORY RATE 0 b/min; RESPIRATORY RATE (OBSERVED) 15 b/min; TIDAL VOLUME 989 mL; TOTAL HEMOGLOBIN 12.1 G/dl (14.0-18.0)
[2019-02-04] VITALS (24 sets, daily range): BP systolic 97–139; BP diastolic 56–74
[2019-02-04 03:20] LABS: ABG BASE EXCESS -3.5 mmol/L (-2.0-3.0); ABG HCO3 19.7 mmol/L (22.0-26.0); ABG OXYGEN SATURATION 90.8 % (95-98); ABG PCO2 (T) 31.3 mmHg (35.0-48.0); ABG PH (T) 7.422 (7.350-7.450); ABG PO2 (T) 59.9 mmHg (83-108); FCOHb 0.3 % (0.5-1.5); FMetHb 0.1 % (0.3-1.12); FO2Hb 90.4 % (94-100); MINUTE VOLUME 13 L/min; PATIENT TEMPERATURE 38.1; PEEP 5 cm H2O; RESPIRATORY RATE 0 b/min; RESPIRATORY RATE (OBSERVED) 16 b/min; TIDAL VOLUME 792 mL
--- NOTE | 2019-02-04 03:30 | NUR ---
Pt extubated to 10L simple mask.
[2019-02-04 03:40] LABS: BASOPHILS % (AUTO) 0.1 % (0-1); EOSINOPHILS % (AUTO) 0 % (0-6); HEMATOCRIT 32.9 % (42.0-52.0); HEMOGLOBIN 11.2 g/dl (14.0-17.9); LYMPHOCYTES # (AUTO) 0.7 X10'3 (1.1-4.8); LYMPHOCYTES % (AUTO) 3.9 % (21-51); MEAN CORPUSCULAR HEMOGLOBIN 29.9 PG (27.0-31.0); MEAN CORPUSCULAR VOLUME 88.1 FL (78-98); MEAN PLATELET VOLUME 8.9 FL (7.4-10.4); MONOCYTES # (AUTO) 0.8 X10'3 (0-0.9); MONOCYTES % (AUTO) 4.1 % (2-12); NEUTROPHILS % (AUTO) 91.9 % (42-75); PLATELET COUNT 181 X10'3 (140-440); RED BLOOD COUNT 3.74 X10'6 (4.70-6.10); RED CELL DISTRIBUTION WIDTH 13.6 % (11.5-14.5); WHITE BLOOD COUNT 18.6 X10'3 (4.5-11.0)
[2019-02-04 03:45] LABS: PARTIAL THROMBOPLASTIN TIME 27 SECONDS (22-32); PROTHROMBIN TIME 10.4 SECONDS (9.0-12.0)
[2019-02-04 03:46] LABS: ALANINE AMINOTRANSFERASE 31 U/L (12-78); ALBUMIN 2.9 G/DL (3.4-5.0); ALBUMIN/GLOBULIN RATIO 1.1 (1.1-1.5); ALKALINE PHOSPHATASE 61 IU/L (46-116); ANION GAP 11 (8-16); ASPARTATE AMINO TRANSFERASE 36 U/L (10-37); BILIRUBIN,TOTAL 0.3 MG/DL (0.1-1.0); BLOOD UREA NITROGEN 10 MG/DL (7-18); BUN/CREATININE RATIO 10.1 (5.4-32.0); CALCIUM 8.1 MG/DL (8.5-10.1); CHLORIDE 108 MMOL/L (99-107); CREATININE 0.99 MG/DL (0.60-1.10); GLUCOSE 155 MG/DL (70-104); MAGNESIUM 2.4 MG/DL (1.5-2.4); PHOSPHORUS 2.6 MG/DL (2.3-4.5); POTASSIUM 4.2 MMOL/L (3.5-5.1); SODIUM 139 MMOL/L (135-145); TOTAL CARBON DIOXIDE 20.1 MMOL/L (24-32); TOTAL PROTEIN 5.5 G/DL (6.4-8.2); eGFR 76 ML/MIN
[2019-02-04] MEDS: HYDROcodone/acetaminophen 10/325mg tab PO PRN ×2 (04:00→12:44)
[2019-02-04] MEDS: potassium Cl 20mEq/100mL bag 100 ML IV PRN ×2 (04:40→05:48)
[2019-02-04] MEDS ORDERED: magnesium 2GM in 50ml NS 50 ML IV PRN (04:45)
[2019-02-04 05:11] LABS: ACTIVATED CLOTTING TIME 113 SEC (101-148)
[2019-02-04 05:11] LABS: ACT @ 1.70 U 228 SEC (193-297); ACT @ 2.84 U 292 SEC (260-420); BASELINE ACT 121 SEC (101-148); PATIENT WEIGHT 98.0k KG
--- NOTE | 2019-02-04 05:19 | NUR ---
Pt switched to HiFlow NC 100% FiO2 at 40L. Pt grumpy, painful. Given Morphine and Lytle with minimal decrease in stated pain although pt does dose off when he isn't playing with the TV remote. Continuing to educate on Post Op care.
[2019-02-04 05:57] LABS: TOTAL CELLS COUNTED 100
[2019-02-04 05:58] LABS: PLATELET ESTIMATE NORMAL
--- NOTE | 2019-02-04 06:17 | NUR ---
Problems reprioritized. Patient report given, questions answered & plan of care reviewed with Reagan STEWART.
[2019-02-04] MEDS: metoprolol tartrate 12.5mg (1/2 tablet) PO SCH ×2 (07:39→20:11)
[2019-02-04] MEDS: ceFAZolin 2gm in dextrose, iso 100 ML IV SCH ×3 (07:39→23:33)
[2019-02-04] MEDS: docusate sod 100mg capsule PO SCH ×2 (07:39→20:11)
[2019-02-04] MEDS: gabapentin 300mg capsule PO SCH ×3 (07:39→20:11)
[2019-02-04] MEDS: aspirin 325mg tablet, delayed-release (Ecotrin) PO SCH (07:40)
[2019-02-04] MEDS: nicotine 21mg patch - 24 hr TD SCH (07:40)
[2019-02-04] MEDS: atorvastatin 10mg tablet PO SCH (07:40)
--- NOTE | 2019-02-04 07:44 | NUR ---
habitrol patch removed from right shoulder.
[2019-02-04] MEDS: K and/or MAG REPLACEMENT MC SCH (08:00)
[2019-02-04] MEDS: mupirocin 2% nasal ointment 1gm UD NS SCH ×2 (08:21→20:12)
[2019-02-04] MEDS: vancomycin/NS 1 GM ADD-VANTAGE 250 ML IV SCH ×2 (08:21→20:13)
[2019-02-04] MEDS: insulin Lispro (HumaLOG) vial - multi-dose SQ SCH ×3 (09:06→22:11)
[2019-02-04] MEDS: insulin regular, human 100 UNIT in normal saline 100ml IV soln 100 ML IV SCH ×2 (11:12)
[2019-02-04] MEDS ORDERED: insulin Lispro (HumaLOG) vial - multi-dose SQ SCH (13:40)
[2019-02-04] MEDS ORDERED: dextrose 50%-water 50ml dispensing syringe IV PRN ×2 (13:40)
[2019-02-04] MEDS ORDERED: glucagon, human recombinant 1mg kit SUBCUT PRN (13:40)
[2019-02-04] MEDS ORDERED: dextrose ORAL solution 15 GM/59 ML bottle PO PRN ×2 (13:40)
[2019-02-04] MEDS: ketorolac tromethamine 15mg/ml inj. IV SCH ×2 (15:18→20:12)
[2019-02-04] MEDS ORDERED: insulin glargine (Lantus) pen - multi-dose SQ SCH ×2 (17:00→21:00)
--- NOTE | 2019-02-04 18:16 | NUR ---
Problems reprioritized. Patient report given, questions answered & plan of care reviewed with PAT Solano.
--- NOTE | 2019-02-04 18:30 | NUR ---
Patient in room ICU 2039. I have received report from PAT Santos and had the opportunity to ask questions and assume patient care.
[2019-02-04] MEDS: normal saline 1000ml 1,000 ML IV SCH ×2 (19:00→23:29)
[2019-02-05] VITALS (24 sets, daily range): BP systolic 99–142; BP diastolic 51–86
[2019-02-05] MEDS: ketorolac tromethamine 15mg/ml inj. IV SCH (02:18)
[2019-02-05] MEDS: insulin Lispro (HumaLOG) vial - multi-dose SQ SCH ×4 (02:21→19:28)
[2019-02-05 02:59] LABS: BASOPHILS % (AUTO) 0.1 % (0-1); EOSINOPHILS % (AUTO) 0 % (0-6); HEMATOCRIT 30.2 % (42.0-52.0); HEMOGLOBIN 10.2 g/dl (14.0-17.9); LYMPHOCYTES % (AUTO) 4.9 % (21-51); MEAN CORPUSCULAR HEMOGLOBIN 30.3 PG (27.0-31.0); MEAN CORPUSCULAR VOLUME 89.1 FL (78-98); MEAN PLATELET VOLUME 9.3 FL (7.4-10.4); MONOCYTES # (AUTO) 1.7 X10'3 (0-0.9); MONOCYTES % (AUTO) 8.3 % (2-12); NEUTROPHILS # (AUTO) 17.4 X10'3 (1.8-7.7); NEUTROPHILS % (AUTO) 86.7 % (42-75); PLATELET COUNT 174 X10'3 (140-440); RED BLOOD COUNT 3.39 X10'6 (4.70-6.10); RED CELL DISTRIBUTION WIDTH 13.9 % (11.5-14.5); WHITE BLOOD COUNT 20.1 X10'3 (4.5-11.0)
[2019-02-05 03:00] LABS: ALANINE AMINOTRANSFERASE 27 U/L (12-78); ALBUMIN 2.5 G/DL (3.4-5.0); ALBUMIN/GLOBULIN RATIO 0.9 (1.1-1.5); ALKALINE PHOSPHATASE 56 IU/L (46-116); ANION GAP 7 (8-16); ASPARTATE AMINO TRANSFERASE 21 U/L (10-37); BILIRUBIN,TOTAL 0.2 MG/DL (0.1-1.0); BLOOD UREA NITROGEN 22 MG/DL (7-18); BUN/CREATININE RATIO 17.9 (5.4-32.0); CALCIUM 8.1 MG/DL (8.5-10.1); CHLORIDE 105 MMOL/L (99-107); CREATININE 1.23 MG/DL (0.60-1.10); GLUCOSE 213 MG/DL (70-104); MAGNESIUM 2.5 MG/DL (1.5-2.4); PHOSPHORUS 3.4 MG/DL (2.3-4.5); POTASSIUM 4.9 MMOL/L (3.5-5.1); SODIUM 138 MMOL/L (135-145); TOTAL CARBON DIOXIDE 25.7 MMOL/L (24-32); TOTAL PROTEIN 5.2 G/DL (6.4-8.2); eGFR 59 ML/MIN
[2019-02-05 03:41] LABS: PLATELET ESTIMATE NORMAL; TOTAL CELLS COUNTED 100
--- NOTE | 2019-02-05 06:30 | NUR ---
Problems reprioritized. Patient report given, questions answered & plan of care reviewed with PAT Villarreal.
[2019-02-05] MEDS: K and/or MAG REPLACEMENT MC SCH (08:00)
[2019-02-05] MEDS: atorvastatin 10mg tablet PO SCH (08:57)
[2019-02-05] MEDS: metoprolol tartrate 12.5mg (1/2 tablet) PO SCH ×2 (08:57→19:22)
[2019-02-05] MEDS: docusate sod 100mg capsule PO SCH ×2 (08:57→19:22)
[2019-02-05] MEDS: aspirin 325mg tablet, delayed-release (Ecotrin) PO SCH (08:57)
[2019-02-05] MEDS: gabapentin 300mg capsule PO SCH (08:57)
[2019-02-05] MEDS: mupirocin 2% nasal ointment 1gm UD NS SCH (08:58)
[2019-02-05] MEDS: HYDROcodone/acetaminophen 10/325mg tab PO PRN ×2 (08:58→13:38)
[2019-02-05] MEDS: pantoprazole 40mg Tablet.DR PO SCH (08:58)
[2019-02-05] MEDS: nicotine 21mg patch - 24 hr TD SCH (08:58)
[2019-02-05] MEDS: sodium chloride 0.45% 1,000 ML IV SCH ×2 (11:23→23:17)
[2019-02-05 11:52] LABS: CLARITY,URINE CLEAR (Clear); COLOR,URINE YELLOW (Yellow); GLUCOSE, URINE 500 mg/dl (Neg); KETONES,URINE NEGATIVE (Neg); LEUKOCYTE ESTERASE ,URINE NEGATIVE (Neg); NITRITES, URINE NEGATIVE (Neg); OCCULT BLOOD,URINE MODERATE (Neg); PROTEIN,URINE TRACE mg/dl (Neg); UA COLLECTION TYPE FOLEY CATH; UROBILINOGEN,URINE 0.2 E.U/dL (0.2-1.0)
[2019-02-05 12:00] LABS: SQUAMOUS EPITHELIAL CELL,UR FEW /LPF (FEW)
[2019-02-05 12:01] LABS: BACTERIA,URINE FEW /HPF (Neg); WBC,URINE 0-4 /HPF (0-4)
--- NOTE | 2019-02-05 12:21 | NUR ---
Pt seen by VENUS for written/verbal CABG ed. Pt had further questions regarding DM diet which VENUS reinforced proper diet guidelines and provided DM online resource links written on RD card. RD also encouraged diabetic cookbooks and to avoid "keto" cookbooks since pt wants to plan his meals out at home. Pt agrees to double proteins TIDWM; VENUS d/w dietary. Ensure clear to d/c since now on carb controlled diet. Addendum: 02/05/19 at [address] Amended: Links added.
[2019-02-05] MEDS: normal saline 1000ml 1,000 ML IV SCH (12:55)
[2019-02-05] MEDS: insulin glargine (Lantus) pen - multi-dose SQ SCH (17:53)
--- NOTE | 2019-02-05 18:39 | NUR ---
Patient did well today POD #2; ambulated well with staff and requested to keep walking. Chest tubes removed at 0930. Up to chair during meals and encouraged IS/FV. Able to wean o2 down to 40% fi02 and 25 liter. Patient report given to Xiomara STEWART with all questions answered.
[2019-02-06] VITALS (14 sets, daily range): BP systolic 98–133; BP diastolic 56–87
[2019-02-06] MEDS: normal saline 1000ml 1,000 ML IV SCH (01:16)
[2019-02-06 02:47] LABS: BASOPHILS # (AUTO) 0.1 X10'3 (0-0.2); BASOPHILS % (AUTO) 0.7 % (0-1); EOSINOPHILS # (AUTO) 0.2 X10'3 (0-0.9); EOSINOPHILS % (AUTO) 1.1 % (0-6); HEMATOCRIT 29.5 % (42.0-52.0); HEMOGLOBIN 10.1 g/dl (14.0-17.9); LYMPHOCYTES % (AUTO) 13.4 % (21-51); MEAN CORPUSCULAR HGB CONC 34.1 g/dL (33.0-36.5); MEAN PLATELET VOLUME 8.7 FL (7.4-10.4); MONOCYTES # (AUTO) 1.3 X10'3 (0-0.9); MONOCYTES % (AUTO) 8.6 % (2-12); NEUTROPHILS # (AUTO) 11.2 X10'3 (1.8-7.7); NEUTROPHILS % (AUTO) 76.2 % (42-75); PLATELET COUNT 197 X10'3 (140-440); RED BLOOD COUNT 3.35 X10'6 (4.70-6.10); RED CELL DISTRIBUTION WIDTH 13.9 % (11.5-14.5); WHITE BLOOD COUNT 14.7 X10'3 (4.5-11.0)
[2019-02-06 02:59] LABS: ALBUMIN 2.4 G/DL (3.4-5.0); ANION GAP 6 (8-16); BLOOD UREA NITROGEN 25 MG/DL (7-18); BUN/CREATININE RATIO 24.8 (5.4-32.0); CALCIUM 7.8 MG/DL (8.5-10.1); CHLORIDE 107 MMOL/L (99-107); CREATININE 1.01 MG/DL (0.60-1.10); GLUCOSE 88 MG/DL (70-104); MAGNESIUM 1.9 MG/DL (1.5-2.4); PHOSPHORUS 3.6 MG/DL (2.3-4.5); POTASSIUM 3.9 MMOL/L (3.5-5.1); SODIUM 140 MMOL/L (135-145); TOTAL CARBON DIOXIDE 26.8 MMOL/L (24-32); eGFR 74 ML/MIN
[2019-02-06] MEDS ORDERED: magnesium 4gm in 100ml NS 100 ML IV PRN (03:15)
[2019-02-06] MEDS ORDERED: magnesium 2GM in 50ml NS 50 ML IV PRN (03:15)
--- NOTE | 2019-02-06 06:00 | NUR ---
Patient in room MED 311. I have received report from Lucretia STEWART in ICU and had the opportunity to ask questions and assume patient care. Addendum: 02/06/19 at 1105 by Ash Jordan RN @0900
--- NOTE | 2019-02-06 06:30 | NUR ---
Patient in room ICU 2039. I have received report from PAT Solano and had the opportunity to ask questions and assume patient care.
--- NOTE | 2019-02-06 06:42 | NUR ---
Problems reprioritized. Patient report given, questions answered & plan of care reviewed with PAT Boykin.
[2019-02-06] MEDS ORDERED: furosemide 40mg/4ml inj IV ONE (07:20)
[2019-02-06] MEDS: K and/or MAG REPLACEMENT MC SCH (08:00)
[2019-02-06] MEDS: nicotine 21mg patch - 24 hr TD SCH (08:10)
[2019-02-06] MEDS: atorvastatin 10mg tablet PO SCH (08:11)
[2019-02-06] MEDS: metoprolol tartrate 12.5mg (1/2 tablet) PO SCH ×2 (08:11→20:10)
[2019-02-06] MEDS: docusate sod 100mg capsule PO SCH ×2 (08:11→20:00)
[2019-02-06] MEDS: HYDROcodone/acetaminophen 10/325mg tab PO PRN ×2 (08:11→20:11)
[2019-02-06] MEDS: pantoprazole 40mg Tablet.DR PO SCH (08:11)
[2019-02-06] MEDS: aspirin 325mg tablet, delayed-release (Ecotrin) PO SCH (08:11)
[2019-02-06] MEDS: insulin glargine (Lantus) pen - multi-dose SQ SCH (08:48)
--- NOTE | 2019-02-06 09:15 | NUR ---
Report called to receiving nurse. Transferred via wheelchair and Belongings . Special Issues communicated to receiving nurse, PAT Aleman
[2019-02-06] MEDS: insulin Lispro (HumaLOG) vial - multi-dose SQ SCH ×2 (09:28→19:00)
--- NOTE | 2019-02-06 10:59 | NUR ---
Reassessment: Pt hemodynamically stable per MD notes. Pt just transferred out of ICU and to med floor. Pt documented with 100% intake with double protein TID meeting nutrient needs. LBM 02/01, pt recently started on routine Colace with MoM and Reglan PRN not yet given. Will continue to follow and monitor need for additional bowel care. Rec: 1. continue carb controlled/NCS diet 2. double proteins TIDWM 3. bowel regularity 4. wt per rx Addendum: 02/06/19 at [address] Amended: Links added.
--- NOTE | 2019-02-06 12:00 | NUR ---
DR. DAVILA at bedside. new order received: contrast echo r/o PFO shunting.
--- NOTE | 2019-02-06 15:23 | NUR ---
Dr. De Leon called me and wanted me to have Respiratory do a Room Air ABG. I paged respiratiory and let them know of the new order. When respiratory arrived I they instructed me to turn off the pt's O2 for 5-10 minutes and then she would do it.
[2019-02-06 15:50] LABS: ABG BASE EXCESS 1.9 mmol/L (-2.0-3.0); ABG HCO3 24.9 mmol/L (22.0-26.0); ABG OXYGEN SATURATION 85.7 % (95-98); ABG PCO2 (T) 33.7 mmHg (35.0-48.0); ABG PH (T) 7.487 (7.350-7.450); ABG PO2 (T) 47.1 mmHg (83-108); ALLEN'S TEST Positive; FCOHb 0.3 % (0.5-1.5); FMetHb 0.3 % (0.3-1.12); FO2Hb 85.2 % (94-100); TOTAL HEMOGLOBIN 12.5 G/dl (14.0-18.0)
--- NOTE | 2019-02-06 18:10 | NUR ---
I have received report from Dina Patel RN and had the opportunity to ask questions and assume patient care.
--- NOTE | 2019-02-06 18:48 | NUR ---
Patient in room MED 311. I have received report from Ash STEWART and had the opportunity to ask questions and assume patient care.
[2019-02-06] MEDS: enoxaparin 30mg/0.3ml syringe SUBCUT SCH (20:12)
[2019-02-06] MEDS: OXAZEpam 15mg capsule PO PRN (23:14)
[2019-02-07] MEDS: HYDROcodone/acetaminophen 10/325mg tab PO PRN ×3 (01:25→19:31)
[2019-02-07 02:00] VITALS: BP 113/65
[2019-02-07 06:00] VITALS: BP 131/94
[2019-02-07 06:24] LABS: ALBUMIN 2.5 G/DL (3.4-5.0); ANION GAP 8 (8-16); BLOOD UREA NITROGEN 25 MG/DL (7-18); BUN/CREATININE RATIO 26.3 (5.4-32.0); CALCIUM 8.3 MG/DL (8.5-10.1); CHLORIDE 105 MMOL/L (99-107); CREATININE 0.95 MG/DL (0.60-1.10); GLUCOSE 122 MG/DL (70-104); PHOSPHORUS 4.4 MG/DL (2.3-4.5); POTASSIUM 4.4 MMOL/L (3.5-5.1); SODIUM 140 MMOL/L (135-145); TOTAL CARBON DIOXIDE 26.8 MMOL/L (24-32); eGFR 79 ML/MIN
[2019-02-07] MEDS: K and/or MAG REPLACEMENT MC SCH (08:00)
--- NOTE | 2019-02-07 08:30 | NUR ---
ENCOURAGED PATIENT TO USE INCENTIVE SPIROMETER TO WEAN O2, NEEDS REMINDING
[2019-02-07] MEDS: nicotine 14mg patch - 24hr TD SCH (08:32)
[2019-02-07] MEDS: metoprolol tartrate 12.5mg (1/2 tablet) PO SCH ×2 (08:33→19:31)
[2019-02-07] MEDS: aspirin 325mg tablet, delayed-release (Ecotrin) PO SCH (08:33)
[2019-02-07] MEDS: atorvastatin 10mg tablet PO SCH (08:33)
[2019-02-07] MEDS: pantoprazole 40mg Tablet.DR PO SCH (08:33)
[2019-02-07] MEDS: enoxaparin 30mg/0.3ml syringe SUBCUT SCH ×2 (08:35→19:30)
[2019-02-07] MEDS: docusate sod 100mg capsule PO SCH ×2 (08:35→19:57)
[2019-02-07] MEDS: insulin glargine (Lantus) pen - multi-dose SQ SCH (08:36)
[2019-02-07] MEDS: insulin Lispro (HumaLOG) vial - multi-dose SQ SCH ×2 (08:39→19:24)
[2019-02-07 11:00] VITALS: BP 102/72
[2019-02-07 15:00] VITALS: BP 112/74
[2019-02-07 18:00] VITALS: BP 102/71
--- NOTE | 2019-02-07 18:30 | NUR ---
Patient in room MED 311. I have received report from Alena STEWART and had the opportunity to ask questions and assume patient care.
--- NOTE | 2019-02-07 19:40 | NUR ---
Call from Dr De Leon. Orders given for 40 mg IV Lasix x 1, K Dur 10 MEQ po x 1 and CXR PA & Lat tonight.
[2019-02-07] MEDS ORDERED: potassium chloride 10mEq ER tablet PO STA (19:51)
[2019-02-07] MEDS ORDERED: furosemide 40mg/4ml inj IV ONE (19:55)
[2019-02-07 22:00] VITALS: BP 111/70
[2019-02-07] MEDS: OXAZEpam 15mg capsule PO PRN (22:29)
[2019-02-08 02:00] VITALS: BP 98/61
--- NOTE | 2019-02-08 06:00 | NUR ---
I have received report from Dina Patel RN and had the opportunity to ask questions and assume patient care.
[2019-02-08 06:05] LABS: PHOSPHORUS 4.6 MG/DL (2.3-4.5)
[2019-02-08 07:00] VITALS: BP 110/78
[2019-02-08 07:06] LABS: MAGNESIUM 1.9 MG/DL (1.5-2.4)
[2019-02-08] MEDS: enoxaparin 30mg/0.3ml syringe SUBCUT SCH (07:24)
[2019-02-08] MEDS: nicotine 14mg patch - 24hr TD SCH (07:24)
[2019-02-08] MEDS: metoprolol tartrate 12.5mg (1/2 tablet) PO SCH (07:25)
[2019-02-08] MEDS: aspirin 325mg tablet, delayed-release (Ecotrin) PO SCH (07:25)
[2019-02-08] MEDS: pantoprazole 40mg Tablet.DR PO SCH (07:25)
[2019-02-08] MEDS: docusate sod 100mg capsule PO SCH (07:25)
[2019-02-08] MEDS: atorvastatin 10mg tablet PO SCH (07:25)
[2019-02-08] MEDS: insulin glargine (Lantus) pen - multi-dose SQ SCH (07:26)
[2019-02-08] MEDS: K and/or MAG REPLACEMENT MC SCH (08:00)
--- NOTE | 2019-02-08 09:10 | NUR ---
The pt. refused his breakfast this morning and his blood glucose reading was in the 90s so he did not require any insulin coverage.
[2019-02-08 11:00] VITALS: BP 126/76
--- NOTE | 2019-02-08 12:34 | NUR ---
I called report to [facility] and answered all their questions. I spoke with the pt. about his discharge and answered all his questions. [facility] sent with the pt. in 3 bags to [facility]. PIV removed without complication.
== END 2019-02-08 12:30 | DRG 233 ==
LOC: ER 16:16 → ED HOLD 02-01 00:32 → PCU 3S 02-01 00:45 → ICU 2S 02-01 15:30 → MED 3N 02-06 09:40
PROVIDERS: ADMIT Family Medicine; ATTEND Thoracic Surgery (Cardiothoracic Vascular Surgery)
PROC: 4A023N7 Measurement of Cardiac Sampling and Pressure, Left Heart, Percutaneous Approach (ICD-10-PCS; 2019-02-01)
PROC: B2111ZZ Fluoroscopy of Multiple Coronary Arteries using Low Osmolar Contrast (ICD-10-PCS; 2019-02-01)
PROC: B2151ZZ Fluoroscopy of Left Heart using Low Osmolar Contrast (ICD-10-PCS; 2019-02-01)
PROC: B3111ZZ Fluoroscopy of Right Brachiocephalic-Subclavian Artery using Low Osmolar Contrast (ICD-10-PCS; 2019-02-01)
PROC: B3121ZZ Fluoroscopy of Left Subclavian Artery using Low Osmolar Contrast (ICD-10-PCS; 2019-02-01)
PROC: B31N1ZZ Fluoroscopy of Other Upper Arteries using Low Osmolar Contrast (ICD-10-PCS; 2019-02-01)
PROC: 021209W Bypass Coronary Artery, Three Arteries from Aorta with Autologous Venous Tissue, Open Approach (ICD-10-PCS; 2019-02-03)
PROC: 06BQ4ZZ Excision of Left Saphenous Vein, Percutaneous Endoscopic Approach (ICD-10-PCS; 2019-02-03)
PROC: 02HV33Z Insertion of Infusion Device into Superior Vena Cava, Percutaneous Approach (ICD-10-PCS; 2019-02-03)
PROC: B548ZZA Ultrasonography of Superior Vena Cava, Guidance (ICD-10-PCS; 2019-02-03)
PROC: 02HQ32Z Insertion of Monitoring Device into Right Pulmonary Artery, Percutaneous Approach (ICD-10-PCS; 2019-02-03)
PROC: 5A1221Z Performance of Cardiac Output, Continuous (ICD-10-PCS; 2019-02-03)
PROC: B24BZZ4 Ultrasonography of Heart with Aorta, Transesophageal (ICD-10-PCS; 2019-02-03)
PROC: 02100Z9 Bypass Coronary Artery, One Artery from Left Internal Mammary, Open Approach (ICD-10-PCS; principal; 2019-02-03 07:17)
DX: I21.4 Non-ST elevation (NSTEMI) myocardial infarction (principal); J96.01 Acute respiratory failure with hypoxia; I44.2 Atrioventricular block, complete; J98.11 Atelectasis; I71.4 Abdominal aortic aneurysm, without rupture; E78.5 Hyperlipidemia, unspecified; E87.70 Fluid overload, unspecified; F17.210 Nicotine dependence, cigarettes, uncomplicated; E11.65 Type 2 diabetes mellitus with hyperglycemia; G89.29 Other chronic pain; I10 Essential (primary) hypertension; D72.829 Elevated white blood cell count, unspecified; I25.10 Atherosclerotic heart disease of native coronary artery without angina pectoris; J43.9 Emphysema, unspecified; M54.40 Lumbago with sciatica, unspecified side; Z99.81 Dependence on supplemental oxygen; Z79.82 Long term (current) use of aspirin; Z87.442 Personal history of urinary calculi; Z83.3 Family history of diabetes mellitus; Z71.6 Tobacco abuse counseling
CPT/HCPCS: 36415; 36600; 71045; 71046; 80048; 80053; 80061; 81001; 81003; 82330; 82435; 82803; 82947; 82948; 83036; 83735; 84100; 84132; 84295; 84484; 85018; 85025; 85347; 85384; 85610; 85730; 86870; 86885; 86900; 86901; 86922; 87070; 93005; 93306; 93312; 93325; 93459; 93880; 93970; 94002; 94003; 94010; 94150; 94668; 94760; 97110; 97116; 97161; 97530; 99152; 99153; 99285; A6196; A6255; A6257; A6258; A6449; A7000; A7048; C1751; C1760; C1769; C9113; G0378; J0690; J1644; J1650; J1815; J1885; J1940; J2001; J2060; J2150; J2250; J2270; J2370; J2440; J2704; J2720; J2795; J3010; J3246; J3370; J3475; J3480; J3490; J7030; J7060; J7120; P9045; P9047; Q9967

== ENCOUNTER 2024-07-05 20:02 | Emergency (ER) | payer OTHER, MEDICARE ==
[~2024-07-05] VITALS: Ht 177.8 cm; Wt 92.6 kg
[~2024-07-05 20:02] MED LIST changes: +ASPI-611 PO; -HYDR-4383 PO; -NAPR-1154 PO
[2024-07-05 20:37] LABS: BASOPHILS # (AUTO) 0.1 X10'3 (0-0.2); BASOPHILS % (AUTO) 0.5 % (0-1); EOSINOPHILS # (AUTO) 0.8 X10'3 (0-0.9); EOSINOPHILS % (AUTO) 6.5 % (0-6); HEMATOCRIT 50.4 % (42.0-52.0); HEMOGLOBIN 17.1 g/dl (14.0-17.9); LYMPHOCYTES # (AUTO) 1.8 X10'3 (1.1-4.8); LYMPHOCYTES % (AUTO) 14.5 % (21-51); MEAN CORPUSCULAR HEMOGLOBIN 30.7 PG (27.0-31.0); MEAN CORPUSCULAR HGB CONC 33.9 g/dL (33.0-36.5); MEAN CORPUSCULAR VOLUME 90.8 FL (78-98); MEAN PLATELET VOLUME 8.5 FL (7.4-10.4); MONOCYTES # (AUTO) 0.7 X10'3 (0-0.9); MONOCYTES % (AUTO) 5.5 % (2-12); NEUTROPHILS # (AUTO) 9.2 X10'3 (1.8-7.7); PLATELET COUNT 198 X10'3 (140-440); RED BLOOD COUNT 5.55 X10'6 (4.70-6.10); RED CELL DISTRIBUTION WIDTH 14.7 % (11.5-14.5); WHITE BLOOD COUNT 12.6 X10'3 (4.5-11.0)
[2024-07-05 20:54] LABS: ALANINE AMINOTRANSFERASE 35 U/L (12-78); ALBUMIN 3.6 G/DL (3.4-5.0); ALKALINE PHOSPHATASE 87 IU/L (46-116); ANION GAP 14 (8-16); ASPARTATE AMINO TRANSFERASE 18 U/L (10-37); BILIRUBIN,TOTAL 0.3 MG/DL (0.1-1.0); BLOOD UREA NITROGEN 20 MG/DL (7-18); BUN/CREATININE RATIO 12.3 (10.0-20.0); CALCIUM 9.1 MG/DL (8.5-10.1); CHLORIDE 107 MMOL/L (99-107); CREATININE 1.62 MG/DL (0.60-1.10); GLUCOSE 133 MG/DL (70-104); POTASSIUM 4.4 MMOL/L (3.5-5.1); SODIUM 142 MMOL/L (135-145); TOTAL CARBON DIOXIDE 21.3 MMOL/L (24-32); TOTAL PROTEIN 7.1 G/DL (6.4-8.2); eCRCL 43 ML/MIN; eGFR 42 ML/MIN
[2024-07-05 21:02] LABS: BILIRUBIN,DIRECT 0.1 MG/DL (0-0.3); PRO BRAIN NATRIURETIC PEPTIDE 351 PG/ML (0-125)
[2024-07-05] MEDS: ipratropium/albuterol 3ml nebule NEB ONE (21:39)
[2024-07-05 21:41] VITALS: PULSE 66; RESP 20; O2SAT 97
[2024-07-05 21:46] VITALS: PULSE 53; RESP 16; O2SAT 100
[2024-07-05] MEDS: predniSONE 20 mg tablet PO ONE (21:48)
[2024-07-05] MEDS: hyDRALAzine 10mg tablet PO STA (21:51)
[2024-07-05] MEDS ORDERED: AZIT250T2 PO (23:11)
[2024-07-05] MEDS ORDERED: PRED20TA PO (23:11)
[2024-07-05] MEDS ORDERED: LISI10TA27 PO (23:11)
[2024-07-05] MEDS ORDERED: ALBU8HFA INH (23:11)
[2024-07-05] MEDS: lisinopril 10 MG tablet PO ONE (23:26)
[2024-07-05 23:47] VITALS: BP 142/75; PULSE 16; RESP 16; TEMP 97.8; O2SAT 97
== END 2024-07-05 23:50 | disposition home or self-care (01) ==
LOC: ER 20:03
DX: N28.9 Disorder of kidney and ureter, unspecified (principal); J44.1 Chronic obstructive pulmonary disease with (acute) exacerbation; I10 Essential (primary) hypertension; F17.210 Nicotine dependence, cigarettes, uncomplicated; Z87.442 Personal history of urinary calculi; Z79.82 Long term (current) use of aspirin; Z79.1 Long term (current) use of non-steroidal anti-inflammatories (NSAID); Z79.899 Other long term (current) drug therapy; Z79.52 Long term (current) use of systemic steroids; Z20.822 Contact with and (suspected) exposure to COVID-19
CPT/HCPCS: 36415; 71045; 80048; 80076; 83735; 83880; 84484; 85025; 87811; 93005; 94640; 99285; J7512; 94760